=== PATIENT | female | born 1995 | race Caucasian/White ===

== ENCOUNTER → 2017-04-11 12:33 | Observation (INO) ==
[2017-04-11 10:16] LABS: Hematocrit 33.6 % (35.3-44.9); Hemoglobin 11.5 g/dL (11.5-15.4); Mean Corpuscular HGB Conc 34.2 g/dL (31.6-35.5); Mean Corpuscular Hemoglobin 30.7 pg (28.0-33.3); Mean Corpuscular Volume 89.8 fL (83.0-100.0); Mean Platelet Volume 10.7 fL (9.4-12.4); Monocytes # 0.8 K/mcL (0.0-1.3); Platelet Count 182 K/mcL (140-400); Red Blood Count 3.74 M/mcL (3.82-4.97); Red Cell Distribution Width 13.6 % (11.5-14.5)
[2017-04-11 10:26] LABS: Amphetamine Screen,Urine Negative ng/mL (Cutoff=1000); Barbiturate Screen,Urine Negative ng/mL (Cutoff=200); Benzodiazepines Screen,Urine Negative ng/mL (Cutoff=200); Cannabinoid Screen,Urine Negative ng/mL (Cutoff = 50); Cocaine Screen,Urine Negative ng/mL (Cutoff= 300); Creatinine,Urine 78 mg/dL; Opiate Screen,Urine Negative ng/mL (Cutoff=300); Phencyclidine Screen,Urine Negative ng/mL (Cutoff=25); Protein/Creatinine Ratio,Urine 0.17 mg/mg (0-0.20)
[2017-04-11 10:31] LABS: Alanine Aminotransferase 8 Units/L (0-55); Aspartate Amino Transferase 13 Units/L (5-34); BUN/Creatinine Ratio 10 (6-26); Blood Urea Nitrogen 7 mg/dL (7-20); Lactate Dehydrogenase 180 Units/L (159-327); Uric Acid 4.8 mg/dL (2.6-6.0); eGFR For African Americans > 60 (> 60); eGFR For Non-African Americans > 60 (> 60)
[2017-04-11 11:17] LABS: Lymphocytes # 1.1 K/mcL (0.6-4.6); Neutrophils # 6.5 K/mcL (1.6-8.9); Platelet Estimate Normal (Normal)
--- NOTE | 2017-04-11 12:22 | OB/GYN Progress Note ---
Date of Encounter: 04/11/17 Time of Encounter: 12:19 - Assessment and Plan (1) 32 weeks gestation of Current Visit: Yes Status: Acute (2) PIH ( induced hypertension) Current Visit: No Status: Acute BP mild range in L&D. Labs all WNL. POC discussed with Dr. Garcia. Will not give any blood pressure medications at this time. Start on 81mg ASA and schedule biweekly NST's. Discharge home with precautions. Qualifiers: Trimester: third trimester Qualified Code(s): O13.3 - Gestational [ -induced] hypertension without significant proteinuria, third trimester (3) Gestational hypertension w/o significant proteinuria in 3rd trimester Current Visit: No Status: Chronic Subjective - Subjective Interval history: Pt reports 1-2 contractions per hour for the last few days. No c/o headache, vision changes, or RUQ pain at this time. Good FM. Antepartum ROS: movement normal, contractions (occassional), no loss of fluid, no vaginal bleeding Objective - Vital Signs Vital Signs: Intake and Output 04/10/17 04/11/17 04/11/17 23:59 07:59 15:59 Other: Weight 76.5 kg Patient Weight 04/11/17 23:59 Weight 76.5 kg - Exam FHR: category 1 FHR comments: NST reactive Auscultation: bilateral: normal Abdomen: Present: soft, gravid. Absent: tenderness Uterus: Absent: tenderness Comments: normal reflexes, no clonus - Labs Labs: Abnormal lab results RBC 3.74 M/mcL (3.82-4.97) L 04/11/17 10:03 Hct 33.6 % (35.3-44.9) L 04/11/17 10:03
== END | disposition home or self-care (01) ==
LOC: 1NENULAB
PROVIDERS: ADMIT Student in an Organized Health Care Education/Training Program; ATTEND Student in an Organized Health Care Education/Training Program

== ENCOUNTER → 2017-04-18 16:42 | Observation (INO) ==
[2017-04-18 16:05] LABS: Amphetamine Screen,Urine Negative ng/mL (Cutoff=1000); Benzodiazepines Screen,Urine Negative ng/mL (Cutoff=200); Cannabinoid Screen,Urine Negative ng/mL (Cutoff = 50); Cocaine Screen,Urine Negative ng/mL (Cutoff= 300); Opiate Screen,Urine Negative ng/mL (Cutoff=300); Phencyclidine Screen,Urine Negative ng/mL (Cutoff=25)
[2017-04-18 16:07] LABS: Barbiturate Screen,Urine Positive ng/mL (Cutoff=200); Creatinine,Urine 30 mg/dL; Protein/Creatinine Ratio,Urine 0.23 mg/mg (0-0.20)
[2017-04-18 16:12] LABS: Alanine Aminotransferase 10 Units/L (0-55); Aspartate Amino Transferase 12 Units/L (5-34); BUN/Creatinine Ratio 7 (6-26); Lactate Dehydrogenase 176 Units/L (159-327); Uric Acid 3.8 mg/dL (2.6-6.0); eGFR For African Americans > 60 (> 60); eGFR For Non-African Americans > 60 (> 60)
[2017-04-18 16:13] LABS: Blood Urea Nitrogen 5 mg/dL (7-20)
[2017-04-18 16:20] LABS: Basophils # 0.1 K/mcL (0.0-0.2); Eosinophils # 0.1 K/mcL (0.0-0.6); Eosinophils % 0.7 %; Hematocrit 33.5 % (35.3-44.9); Hemoglobin 11.4 g/dL (11.5-15.4); Immature Granulocytes % 4.5 % (0-4); Lymphocytes # 1.8 K/mcL (0.6-4.6); Lymphocytes % 22.3 %; Mean Corpuscular Hemoglobin 30.6 pg (28.0-33.3); Mean Corpuscular Volume 90.1 fL (83.0-100.0); Mean Platelet Volume 10.5 fL (9.4-12.4); Monocytes # 0.8 K/mcL (0.0-1.3); Monocytes % 10.4 %; Neutrophils # 4.9 K/mcL (1.6-8.9); Platelet Count 173 K/mcL (140-400); Red Blood Count 3.72 M/mcL (3.82-4.97); Red Cell Distribution Width 13.5 % (11.5-14.5); Segmented Neutrophils % 61.1 %
--- NOTE | 2017-04-18 16:37 | Discharge Summary ---
Date of Encounter: 04/18/17 Time of Encounter: 16:38 - Discharge Diagnosis (1) 33 weeks gestation of Priority: Primary Status: Acute Comments: Admitted for observation and PIH evaluation (2) Headache in , antepartum Priority: Secondary Status: Acute Comments: Tylenol given for headache pain. (3) NST (non-stress test) reactive on surveillance Priority: Secondary Status: Acute Comments: 120 bpm, moderate variability, +15x15 accels, no decels. Category I tracing. (4) PIH ( induced hypertension) Priority: Secondary Status: Acute Comments: PIH evaluation completed All labs WNL Qualifiers: Trimester: third trimester Qualified Code(s): O13.3 - Gestational [ -induced] hypertension without significant proteinuria, third trimester - Discharge Medications Home Medications: Vit/FA 1 each PO DAILY 05/17/15 [History] Tylenol 650 mg PO PRN PRN 04/15/17 [History] Allergies/Adverse Reactions: 3 Allergy/AdvReac Type Severity Reaction Status Date / Time adhesive tape Allergy Hives Verified 10/31/16 11:24 Carbinoxamine [From [facility]] Allergy Insomnia Verified 10/31/16 11:24 codeine Allergy Hives Verified 10/31/16 11:24 Labetalol Allergy Hives Verified 10/31/16 11:24 Penicillins [PCN] Allergy Swelling Verified 10/31/16 11:24 of Lip/Tongue/Throat pseudoephedrine [From [facility]] Allergy Insomnia Verified 10/31/16 11:24 Data Procedures and tests throughout hospitalization: Laboratory Tests 04/18/17 04/18/17 04/18/17 15:40 15:40 15:40 WBC 8.0 RBC 3.72 L Hgb 11.4 L Hct 33.5 L MCV 90.1 MCH 30.6 MCHC 34.0 RDW 13.5 Plt Count 173 MPV 10.5 Immature Gran % 4.5 H Seg Neutrophils % 61.1 Lymphocytes % 22.3 Monocytes % 10.4 Eosinophils % 0.7 Basophils % 1.0 Neutrophils # 4.9 Lymphocytes # 1.8 Monocytes # 0.8 Eosinophils # 0.1 Basophils # 0.1 BUN Creatinine Est GFR ( Amer) Est GFR (Non-Af Amer) BUN/Creatinine Ratio Uric Acid AST ALT Lactate Dehydrogenase Urine Creatinine 30 Protein/Creatinin Ratio 0.23 H Urine Total Protein < 7 Urine Opiates Screen Negative Ur Barbiturates Screen Positive H Ur Phencyclidine Scrn Negative Ur Amphetamines Screen Negative U Benzodiazepines Scrn Negative Urine Cocaine Screen Negative U Marijuana (THC) Screen Negative 04/18/17 15:40 WBC RBC Hgb Hct MCV MCH MCHC RDW Plt Count MPV Immature Gran % Seg Neutrophils % Lymphocytes % Monocytes % Eosinophils % Basophils % Neutrophils # Lymphocytes # Monocytes # Eosinophils # Basophils # BUN 5 L Creatinine 0.75 Est GFR ( Amer) > 60 Est GFR (Non-Af Amer) > 60 BUN/Creatinine Ratio 7 Uric Acid 3.8 AST 12 ALT 10 Lactate Dehydrogenase 176 Urine Creatinine Protein/Creatinin Ratio Urine Total Protein Urine Opiates Screen Ur Barbiturates Screen Ur Phencyclidine Scrn Ur Amphetamines Screen U Benzodiazepines Scrn Urine Cocaine Screen U Marijuana (THC) Screen Labs on day of discharge: Labs from last 24 hours 04/18/17 04/18/17 04/18/17 15:40 15:40 15:40 WBC 8.0 RBC 3.72 L Hgb 11.4 L Hct 33.5 L MCV 90.1 MCH 30.6 MCHC 34.0 RDW 13.5 Plt Count 173 MPV 10.5 Immature Gran % 4.5 H Seg Neutrophils % 61.1 Lymphocytes % 22.3 Monocytes % 10.4 Eosinophils % 0.7 Basophils % 1.0 Neutrophils # 4.9 Lymphocytes # 1.8 Monocytes # 0.8 Eosinophils # 0.1 Basophils # 0.1 BUN 5 L Creatinine 0.75 Est GFR ( Amer) > 60 Est GFR (Non-Af Amer) > 60 BUN/Creatinine Ratio 7 Uric Acid 3.8 AST 12 ALT 10 Lactate Dehydrogenase 176 Urine Creatinine 30 Protein/Creatinin Ratio 0.23 H Urine Total Protein < 7 Urine Opiates Screen Ur Barbiturates Screen Ur Phencyclidine Scrn Ur Amphetamines Screen U Benzodiazepines Scrn Urine Cocaine Screen U Marijuana (THC) Screen 04/18/17 15:40 WBC RBC Hgb Hct MCV MCH MCHC RDW Plt Count MPV Immature Gran % Seg Neutrophils % Lymphocytes % Monocytes % Eosinophils % Basophils % Neutrophils # Lymphocytes # Monocytes # Eosinophils # Basophils # BUN Creatinine Est GFR ( Amer) Est GFR (Non-Af Amer) BUN/Creatinine Ratio Uric Acid AST ALT Lactate Dehydrogenase Urine Creatinine Protein/Creatinin Ratio Urine Total Protein Urine Opiates Screen Negative Ur Barbiturates Screen Positive H Ur Phencyclidine Scrn Negative Ur Amphetamines Screen Negative U Benzodiazepines Scrn Negative Urine Cocaine Screen Negative U Marijuana (THC) Screen Negative Date of admission: 04/18/17 15:00 Primary care physician: PCP NONE Discharging clinician: Keisha Paris Anticipated date of discharge: 04/18/17 - Patient Status Disposition: Home, Self-Care Condition: Good Functional capacity at discharge: independent ambulation - Discharge Instructions Follow Up With: NONE,PCP [Primary Care Provider] - Niles Zuleta MD [Partnered Physician] - Additional Instructions: Follow up as scheduled on SaturdayApril [address] Zuleta - Diet and Activity Activity: increase activity as tolerated Diet: advance to your usual diet Hospital Course [facility] Hospital course: Pt is a at 33w5d here for PIH evaluation after having an elevated BP with home monitor. Pt reports positive movement, denies bleeding and LOF. Reactive NST noted. PIH labs drawn and all WNL, no significant change in values from 04/11/17 or 04/15/17. Pt information discussed with Dr. Zuleta, informed of lab results and BP during stay. Advised by Dr. Zuleta to send patient home and follow up as scheduled. Pt has an appointment with Dr. Weinberg on 04/22/17. Encouraged patient to take Tylenol 1000 mg q6h as needed for headache. Time Attestation: Total time spent providing and/or coordinating discharge services: Time Spent: Less than 30 minutes Exam - Constitutional General appearance IM: A&O X 3, pleasant, no acute distress, answers questions appropriately - Respiratory Respiratory exam: Present: CTAB - Cardiovascular Cardiovascular exam IM: Present: RRR, +S1, +S2 - GI/Abdominal GI/Abdominal exam IM: normal bowel sounds - Rectal Rectal exam: deferred - Extremities Exam Extremities exam IM: Present: full ROM, normal capillary refill, normal inspection. Absent: pedal edema Additional comments: Reflexes 1+ bilateral lower extremities - Neurological Exam Neurological exam: oriented X3 Additional comments: Reports headache - VTE Reasons for not Prescribing Prophylaxis: Treatment not Indicated - Low risk for VTE
[~2017-04-18 16:42] MED LIST: Acetaminophen 325 MG TABLET PO PRN
== END | disposition home or self-care (01) ==
LOC: 1NENULAB
PROVIDERS: ADMIT Obstetrics & Gynecology; ATTEND Obstetrics & Gynecology

== ENCOUNTER → 2017-04-22 11:44 | Observation (INO) ==
[2017-04-22 10:36] LABS: Hematocrit 32.7 % (35.3-44.9); Hemoglobin 11.1 g/dL (11.5-15.4); Mean Corpuscular HGB Conc 33.9 g/dL (31.6-35.5); Mean Corpuscular Hemoglobin 30.6 pg (28.0-33.3); Mean Corpuscular Volume 90.1 fL (83.0-100.0); Mean Platelet Volume 10.4 fL (9.4-12.4); Platelet Count 147 K/mcL (140-400); Red Blood Count 3.63 M/mcL (3.82-4.97); Red Cell Distribution Width 13.3 % (11.5-14.5)
[2017-04-22 10:46] LABS: Creatinine,Urine 36 mg/dL
[2017-04-22 10:48] LABS: Protein/Creatinine Ratio,Urine < 0.19 mg/mg (0-0.20)
[2017-04-22 11:00] LABS: Basophils # 0.2 K/mcL (0.0-0.2); Lymphocytes # 1.8 K/mcL (0.6-4.6); Monocytes # 0.7 K/mcL (0.0-1.3); Neutrophils # 6.4 K/mcL (1.6-8.9)
[2017-04-22 11:01] LABS: Large Platelets Present (Not Present); Platelet Estimate Normal (Normal)
[2017-04-22 11:12] LABS: Alanine Aminotransferase 8 Units/L (0-55); Aspartate Amino Transferase 10 Units/L (5-34); BUN/Creatinine Ratio 7 (6-26); Lactate Dehydrogenase 165 Units/L (159-327); Uric Acid 3.3 mg/dL (2.6-6.0); eGFR For African Americans > 60 (> 60); eGFR For Non-African Americans > 60 (> 60)
[2017-04-22 11:13] LABS: Blood Urea Nitrogen 5 mg/dL (7-20)
--- NOTE | 2017-04-22 11:25 | Discharge Summary ---
Date of Encounter: 04/22/17 Time of Encounter: 11:25 - Discharge Diagnosis (1) 34 weeks gestation of Priority: Secondary Status: Acute Comments: Admitted for PIH evaluation (2) Headache in , antepartum Priority: Secondary Status: Acute Comments: PIH evaulation today. Encouraged Tylenol use for headache. (3) Gestational hypertension w/o significant proteinuria in 3rd trimester Priority: Primary Status: Chronic Comments: PIH evaluation. All labs WNL. Elevated BP's today Initiated Methyldopa 500 mg po bid after consulting with Dr. Weinberg regarding BP's. - Discharge Medications Prescriptions: Methyldopa [Aldomet] 500 mg PO BID #60 tablet Home Medications: Vit/FA 1 each PO DAILY 05/17/15 [History] Tylenol 650 mg PO PRN PRN 04/15/17 [History] Methyldopa [Aldomet] 500 mg PO BID #60 tablet 04/22/17 [Rx] Allergies/Adverse Reactions: 3 Allergy/AdvReac Type Severity Reaction Status Date / Time adhesive tape Allergy Hives Verified 10/31/16 11:24 Carbinoxamine [From [facility]] Allergy Insomnia Verified 10/31/16 11:24 codeine Allergy Hives Verified 10/31/16 11:24 Labetalol Allergy Hives Verified 10/31/16 11:24 Penicillins [PCN] Allergy Swelling Verified 10/31/16 11:24 of Lip/Tongue/Throat pseudoephedrine [From [facility]] Allergy Insomnia Verified 10/31/16 11:24 Data Procedures and tests throughout hospitalization: Laboratory Tests 04/22/17 04/22/17 04/22/17 10:30 10:30 10:30 WBC 9.2 RBC 3.63 L Hgb 11.1 L Hct 32.7 L MCV 90.1 MCH 30.6 MCHC 33.9 RDW 13.3 Plt Count 147 MPV 10.4 Seg Neutrophils % 68.0 Band Neutrophils % 2.0 Lymphocytes % 20.0 Monocytes % 8.0 Basophils % 2.0 Neutrophils # 6.4 Lymphocytes # 1.8 Monocytes # 0.7 Basophils # 0.2 Platelet Estimate Normal Large Platelets Present A BUN 5 L Creatinine 0.71 Est GFR ( Amer) > 60 Est GFR (Non-Af Amer) > 60 BUN/Creatinine Ratio 7 Uric Acid 3.3 AST 10 ALT 8 Lactate Dehydrogenase 165 Urine Creatinine 36 Protein/Creatinin Ratio < 0.19 Urine Total Protein < 7 Labs on day of discharge: Labs from last 24 hours 04/22/17 04/22/17 04/22/17 10:30 10:30 10:30 WBC 9.2 RBC 3.63 L Hgb 11.1 L Hct 32.7 L MCV 90.1 MCH 30.6 MCHC 33.9 RDW 13.3 Plt Count 147 MPV 10.4 Seg Neutrophils % 68.0 Band Neutrophils % 2.0 Lymphocytes % 20.0 Monocytes % 8.0 Basophils % 2.0 Neutrophils # 6.4 Lymphocytes # 1.8 Monocytes # 0.7 Basophils # 0.2 Platelet Estimate Normal Large Platelets Present A BUN 5 L Creatinine 0.71 Est GFR ( Amer) > 60 Est GFR (Non-Af Amer) > 60 BUN/Creatinine Ratio 7 Uric Acid 3.3 AST 10 ALT 8 Lactate Dehydrogenase 165 Urine Creatinine 36 Protein/Creatinin Ratio < 0.19 Urine Total Protein < 7 Date of admission: 04/22/17 10:10 Primary care physician: PCP NONE Discharging clinician: Keisha Paris Anticipated date of discharge: 04/22/17 - Patient Status Disposition: Home, Self-Care Functional capacity at discharge: independent ambulation - Discharge Instructions Follow Up With: NONE,PCP [Primary Care Provider] - Niles Zuleta MD [Partnered Physician] - - Diet and Activity Activity: increase activity as tolerated Diet: advance to your usual diet Hospital Course [facility] Hospital course: Pt is a 22 year old at 34w2d sent from the office for elevated blood pressure readings. Patient reports + movement, denies bleeding and LOF. Reports headache that occurs off and on, currently no headache. Pt was on Methyldopa with last due to elevated blood pressures. After consulting with Dr. Foster regarding blood pressure readings today, decision made to start patient on Methyldopa 500 mg po bid for the remainder of her . Also instructed to have patient begin taking a baby Aspirin daily until 36 weeks gestation. These recommendations were shared with the patient and she is agreeable to this plan. Will give one dose of Methyldopa before discharge today and send home with prescription. Time Attestation: Total time spent providing and/or coordinating discharge services: Time Spent: Less than 30 minutes Exam - Constitutional General appearance IM: cooperative, A&O X 3, pleasant, no acute distress - Respiratory Respiratory exam: Present: CTAB - Cardiovascular Cardiovascular exam IM: Present: RRR, +S1, +S2 - GI/Abdominal GI/Abdominal exam IM: normal bowel sounds - Rectal Rectal exam: deferred - Extremities Exam Extremities exam IM: Present: full ROM, normal capillary refill, normal inspection - Neurological Exam Neurological exam: oriented X3 - Other Additional findings: FHR 135 bpm, moderate variability, + 15x15 accels no decels. Category I tracing. No contractions noted. - VTE Reasons for not Prescribing Prophylaxis: Treatment not Indicated - Low risk for VTE
== END | disposition home or self-care (01) ==
LOC: 1NENULAB
PROVIDERS: ADMIT Obstetrics & Gynecology; ATTEND Obstetrics & Gynecology

== ENCOUNTER 2017-05-11 06:00 | Inpatient (IN) ==
[2017-05-11] MEDS ORDERED: Famotidine 20 MG/2 ML VIAL IVP PRN (06:30)
[2017-05-11] MEDS ORDERED: Naloxone 0.4 MG/ML INJ IVP PRN (06:30)
[2017-05-11] MEDS ORDERED: miSOPROStol 25 MCG TABLET PO PRN (06:30)
[2017-05-11] MEDS ORDERED: Lidocaine 1% 20 ML MDV INFILT PRN (06:30)
[2017-05-11 07:05] LABS: Hematocrit 31.8 % (35.3-44.9); Hemoglobin 10.9 g/dL (11.5-15.4); Immature Platelets 5.1 % (1.1-6.1); Mean Corpuscular HGB Conc 34.3 g/dL (31.6-35.5); Mean Corpuscular Hemoglobin 30.4 pg (28.0-33.3); Mean Corpuscular Volume 88.8 fL (83.0-100.0); Mean Platelet Volume 10.5 fL (9.4-12.4); Platelet Count 177 K/mcL (140-400); Red Blood Count 3.58 M/mcL (3.82-4.97); Red Cell Distribution Width 13.6 % (11.5-14.5)
[2017-05-11 07:21] LABS: Alanine Aminotransferase 7 Units/L (0-55); Aspartate Amino Transferase 11 Units/L (5-34); BUN/Creatinine Ratio 8 (6-26); Blood Urea Nitrogen 6 mg/dL (7-20); Lactate Dehydrogenase 192 Units/L (159-327); Uric Acid 4.3 mg/dL (2.6-6.0); eGFR For African Americans > 60 (> 60); eGFR For Non-African Americans > 60 (> 60)
[2017-05-11 07:41] LABS: Eosinophils # 0.2 K/mcL (0.0-0.6); Lymphocytes # 1.4 K/mcL (0.6-4.6); Monocytes # 0.7 K/mcL (0.0-1.3); Neutrophils # 6.4 K/mcL (1.6-8.9)
--- NOTE | 2017-05-11 07:41 | OB/GYN History & Physical ---
Date of Encounter: 05/11/17 Time of Encounter: 07:28 Assessment and Plan (1) 37 weeks gestation of Current visit: Yes Status: Acute at 37 0/7 weeks gestation here for IOL secondary to gestational hypertension. Blood Type: O negative, antibody negative GBS:Negative Hep B: non-reactive HIV: Nonreactive RPR: Negative Rubella: Positive Varicella: Positive Plan: -admit to inpatient -[place], EFM -monitor VS -LR at 125/hr -Cytotec 50mcg PO Q4hr prn -UDS, CBC -pitocin as needed -epidural as able Anticipate (2) Elective induction of labor planned Current visit: Yes Status: Acute (3) Gestational hypertension w/o significant proteinuria in 3rd trimester Current visit: Yes Status: Chronic History of Present Illness Chief complaint: IOL HPI: Ms. Chatman is a 22 year old female at 37 0/7 weeks gestation presents to L&D for IOL secondary to gestational hypertension and history of preeclampsia in her first . Her has only been complicated by hypertension and she has been on methyldopa 500mg BID. Her pressures have been running in the 90's diastolic at home recently. She denies any other complications. She notes positive movement, no vaginal fluid or blood leak, no foul odor or itching. She denies SAHU, dizziness, visual changes, fevers, chills, CP, SOB, abdominal pain, nausea, vomiting, diarrhea, constipation or rashes. Blood Type: O negative, antibody negative GBS:Negative Hep B: Nonreactive HIV: Nonreactive RPR: Negative Rubella: Positive Varicella: Positive Past Med Surg Social Fam HX - Past Medical History Attestation: Yes The following information was validated with the patient. Source: patient Medical history: asthma, kidney stones Psychiatric history: no psych history - Past Surgical History Surgical History: other - Social History Smoking Status: Former smoker Smokeless Tobacco Status: No Alcohol use: none Drug use: none Occupational status: unemployed Current living situation: Home - Independent Activity Level: Independent ambulation Recent Out of Country Travel Within the Last 8 Weeks: No Exposure or Possible Exposure to Illness During Travel: No - Family History Mother Adopted: No Family Member Ethnicity: Non- Living Status: Still Living Hx Family Cardiac Disorders: No Hx Family Respiratory Disorders: No Hx Family Cancer: No Hx Family GI Disorders: No Hx Family Endocrine Disorder: Yes (diabetes 2) Hx Family Neuromuscular Disorders: No Hx Family Neurologic Disorders: No Hx Family HEENT Disorders: No Hx Family Autoimmune Disorders: No Obstetrical History - Pregnancies : 4 Para: 2 Term: 2 : 0 Ab's: 1 Livin - History/Complications History/Complications: Hx preeclampsia with first PIH with both previous pregnancies Medications and Allergies Vit/FA 1 each PO DAILY 05/17/15 [History] Methyldopa [Aldomet] 500 mg PO BID #60 tablet 04/22/17 [Rx] 3 Allergy/AdvReac Type Severity Reaction Status Date / Time adhesive tape Allergy Hives Verified 05/11/17 07:45 Carbinoxamine [From [facility]] Allergy Insomnia Verified 05/11/17 07:45 codeine Allergy Hives Verified 05/11/17 07:45 Labetalol Allergy Hives Verified 05/11/17 07:45 Penicillins [PCN] Allergy Swelling Verified 05/11/17 07:45 of Lip/Tongue/Throat pseudoephedrine [From [facility]] Allergy Insomnia Verified 05/11/17 07:45 Review of System OB All systems PM: reviewed and no additional remarkable complaints except as stated Results Result Diagrams: 05/11/17 06:50 05/11/17 06:50 Abnormal lab results RBC 3.58 M/mcL (3.82-4.97) L 05/11/17 06:50 Hgb 10.9 g/dL (11.5-15.4) L 05/11/17 06:50 Hct 31.8 % (35.3-44.9) L 05/11/17 06:50 BUN 6 mg/dL (7-20) L 05/11/17 06:50 All other labs normal. - VTE Reasons for not Prescribing Prophylaxis: Treatment not Indicated - Low risk for VTE - Attending Attestation I examined this patient and my medical decision-making was reviewed with the Resident Physician. I agree with the documented findings, disposition and treatment plan as described except to the extent set forth below.
[2017-05-11 07:42] LABS: Platelet Estimate Normal (Normal)
[2017-05-11] MEDS ORDERED: FLUARIX QUAD 2017-18 36MOS UP/PF 0.5 ML SYRINGE IM ONE (07:48)
[2017-05-11] MEDS: Ringers Solution, Lactated 1,000 ML IVC SCH ×3 (08:00→18:59)
[2017-05-11 08:25] LABS: Amphetamine Screen,Urine Negative ng/mL (Cutoff=1000); Barbiturate Screen,Urine Negative ng/mL (Cutoff=200); Benzodiazepines Screen,Urine Negative ng/mL (Cutoff=200); Cannabinoid Screen,Urine Negative ng/mL (Cutoff = 50); Cocaine Screen,Urine Negative ng/mL (Cutoff= 300); Opiate Screen,Urine Negative ng/mL (Cutoff=300); Phencyclidine Screen,Urine Negative ng/mL (Cutoff=25)
[2017-05-11 08:27] LABS: Protein/Creatinine Ratio,Urine 0.16 mg/mg (0-0.20)
--- NOTE | 2017-05-11 13:49 | OB Labor Progress Note ---
Date of Encounter: 05/11/17 Time of Encounter: 13:46 Labor Progress Note - Subjective Subjective: Pt states uc's are spacing out. - Cervix Cervix: 2-3 80 -2 - Heart Tones Heart Tones: RNST - [place]: UC's q 4 min - Interventions Interventions: AROM clear - Plan Plan: Expect
[2017-05-11] MEDS ORDERED: *HR* Nalbuphine 20 MG/ML AMPUL IVP PRN (16:11)
[2017-05-11] MEDS: Acetaminophen 325 MG TABLET PO ONE ×3 (17:24→22:42)
[2017-05-11] MEDS ORDERED: Epidural Premix (fent/bupiv) 110 ML EP ONE (18:33)
--- NOTE | 2017-05-11 19:03 | Anesthesia Evaluation PreOp ---
Date of Encounter: 05/11/17 Time of Encounter: 17:00 - Past History Planned Operation: gianfranco Cardiac History: Denies any Significant Hx Pulmonary History: Denies Any Significant HX RUBBER [employer] TESTER History: Denies Any Significant HX Other Medical History: Denies Any Significant HX Anesthesia History: No Prior Anesthetic Complications : Yes Test: Positive Alcohol Use: none Drug use: none Medications and Allergies Vit/FA 1 each PO DAILY 05/17/15 [History] Methyldopa [Aldomet] 500 mg PO BID #60 tablet 04/22/17 [Rx] 3 Allergy/AdvReac Type Severity Reaction Status Date / Time adhesive tape Allergy Hives Verified 05/11/17 07:45 Carbinoxamine [From [facility]] Allergy Insomnia Verified 05/11/17 07:45 codeine Allergy Hives Verified 05/11/17 07:45 Labetalol Allergy Hives Verified 05/11/17 07:45 Penicillins [PCN] Allergy Swelling Verified 05/11/17 07:45 of Lip/Tongue/Throat pseudoephedrine [From [facility]] Allergy Insomnia Verified 05/11/17 07:45 - Meds/Allergy Pre-op Review Medications Reviewed: Yes Allergies Reviewed: Yes Beta Blockers on Current Med List: Yes Anesthesia Results - Labs 05/11/17 06:50 05/11/17 06:50 Anesthesia Exam Height: 62 Weight: 78 NPO (# of Hours): mn Pain Scale: 10 - HEENT Pupil (Motor): Pupils equal Mallampati: II Teeth: Normal Oral Opening: Greater than 3 - RUBBER [employer] TESTER LOC: Oriented RUBBER [employer] TESTER Motor: Normal RUE, Normal LUE, Normal RLE, Normal LLE, Normal Face RUBBER [employer] TESTER Sensory: Normal: RUE, LUE, RLE, LLE, Face - Cardiac Rhythm: Regular Murmur: None JVD: No Carotid Bruit: No - Pulmonary Breath Sounds: bilateral Clear Respiratory Effort: Symmetrical Anesthesia Assess/Plan ASA Score: 2 Modified Bess Scale for Level of Consciousness: Cooperative, oriented, and tranquil Anesthetic Plan: Regional Autologous Blood: No Monitoring Plan: Standard Monitors
--- NOTE | 2017-05-11 19:05 | Anesthesia Procedures ---
Date of Encounter: 05/11/17 Time of Encounter: 17:00 Procedures: Anesthesia - Epidural/Spinal Patient ID/Chart reviewed: Yes Patient examined: Yes OB Eval: Gestational age: 37 OB Eval: : 4 OB Eval: Hx Para: 2 OB Eval: Dilated at (cm): 4 OB Eval: Contractions: Non-stressed pattern Consent Obtained: Yes Supplemental Oxygen: None/Room Air Site Prep: Aseptic Technique, Sterile prep and drape, Povidone-Iodine 1% Patient position: upright Local Anesthetic: Lidocaine 1% Amount of Local Anesthetic used: 3 Touhy Needle Gauge: 18 Touhy Needle Depth (cm): 4 Catheter Depth at Skin (cm): 7 Test Dose (1.5% Lido + Epi): Volume given (mls): 3 Test Dose Result: Negative Loading Dose: 0.25% Marcaine (mls): 10 Loading Dose Administered: Thru Catheter Infusion Rate (mls/hr): [address]: Tegaderm, Tape Interspace Used: L4-L5 Loss of Resistance (PRIYANKA): Yes Blood: No CSF: No Paresthesia: No Vitals + FHT's: stable
[2017-05-11] MEDS ORDERED: Epidural Premix (fent/bupiv) 110 ML EP SCH (19:15)
[2017-05-11] MEDS ORDERED: Ondansetron 4 MG/2 ML VIAL IVP ONE (20:37)
[2017-05-11] MEDS ORDERED: Oxytocin 20 units/ LR 1000 mL 20 UNIT/1,000 ML BAG IVC ONE (21:57)
--- NOTE | 2017-05-11 22:17 | OB/GYN Procedure Note ---
Delivery - Delivery Date: 05/11/17 Provider: Russel Clinton Intrapartum events: none Delivery induction: misoprostol Delivery monitor: external FHT, internal uterine Anesthesia: epidural Estimated Blood Loss: 100 - (s) Infant A Infant Delivery Date: 05/11/17 Infant Delivery Time: 21:59 Presentation: vertex Position: CHRIS Route of delivery: Gender: Female Viability: Viable Pounds: 6 Ounces: 7 at 1 minute: 8 at 5 mins: 9 Shoulder Dystocia: not encountered Specimens collected: cord blood Placenta: spontaneous Cord: 3 umbilical vessels - Repair Episiotomy: none Laceration Description: None - Complications Delivery complications: none - Disposition Mom disposition: stable in LDR [place] disposition: stable in LDR - Comments Comments: Pt s/p of liveborn female 6lb7oz with APGARS 8 at 1 min and 9 at 5 min. Spontaneous delivery of normal placenta with 3 VC. EBL 100cc.
[2017-05-12] MEDS ORDERED: Rho Immune Globulin 1,500 UNIT SYRINGE IM PRN (01:30)
[2017-05-12] MEDS ORDERED: Acetaminophen 325 MG TABLET PO PRN (01:30)
[2017-05-12] MEDS ORDERED: Oxytocin 20 units/ LR 1000 mL 20 UNIT/1,000 ML BAG IVC SCH (01:30)
[2017-05-12] MEDS ORDERED: Measles/Mumps/Rubella Vacc 0.5 ML VIAL SQ PRN (01:30)
[2017-05-12] MEDS ORDERED: Ondansetron 4 MG/2 ML VIAL IVP PRN (01:43)
[2017-05-12 06:18] LABS: Basophils # 0.1 K/mcL (0.0-0.2); Basophils % 0.5 %; Eosinophils % 0.2 %; Hematocrit 29.9 % (35.3-44.9); Hemoglobin 10.2 g/dL (11.5-15.4); Immature Granulocytes % 2.9 % (0-4); Lymphocytes # 1.7 K/mcL (0.6-4.6); Lymphocytes % 13.6 %; Mean Corpuscular HGB Conc 34.1 g/dL (31.6-35.5); Mean Corpuscular Hemoglobin 30.4 pg (28.0-33.3); Mean Corpuscular Volume 89.3 fL (83.0-100.0); Mean Platelet Volume 10.6 fL (9.4-12.4); Monocytes # 1.1 K/mcL (0.0-1.3); Neutrophils # 9.2 K/mcL (1.6-8.9); Platelet Count 148 K/mcL (140-400); Red Blood Count 3.35 M/mcL (3.82-4.97); Red Cell Distribution Width 13.3 % (11.5-14.5); Segmented Neutrophils % 73.8 %
[2017-05-12] MEDS: Ibuprofen 600 MG TABLET PO PRN ×2 (08:19→15:22)
[2017-05-12] MEDS: Prenatal Vit/FA 1 EACH TABLET PO SCH (08:19)
--- NOTE | 2017-05-12 08:41 | OB/GYN Progress Note ---
Date of Encounter: 05/12/17 Time of Encounter: 08:39 - Assessment and Plan (1) Status post vaginal delivery Current Visit: Yes Status: Acute patient doing very well, , lochia light, cont current inpt care Subjective - Subjective Patient reports: appetite normal, voiding normally, pain well controlled, ambulating normally [place]: doing well Objective - Latest Vital Signs Latest vital signs: Vital Signs Temp Pulse Resp BP Pulse Ox 05/12/17 07:30 98.6 F 69 16 133/84 05/12/17 03:05 98.2 F 54 16 132/86 96 05/12/17 02:05 98.1 F 61 24 135/87 96 05/12/17 01:05 98.3 F 66 16 141/90 98 Intake and Output 05/11/17 05/12/17 05/12/17 23:59 07:59 15:59 Intake Total 1000 / 1000 Output Total 500 / 500 Balance 1000 / 1000 -500 / -500 Intake: IV Fluids 1000 / 1000 Lactated Ringers 1,000 ML @ 125 1000 / 1000 mls/hr IVC .Q8H ROSLYN Rx#: [id number] Output: Urine 500 / 500 Other: Weight 73.482 kg Patient Weight 05/12/17 23:59 Weight 73.482 kg - Exam Lungs: bilateral: normal Chest: Normal S1, Normal S2 Extremities: Present: normal Abdomen: Present: soft Uterus: Present: normal - Labs Labs: Laboratory Results - last 24 hr 05/11/17 05/12/17 22:50 06:02 WBC 12.4 H RBC 3.35 L Hgb 10.2 L Hct 29.9 L MCV 89.3 MCH 30.4 MCHC 34.1 RDW 13.3 Plt Count 148 MPV 10.6 Immature Gran % 2.9 Seg Neutrophils % 73.8 Lymphocytes % 13.6 Monocytes % 9.0 Eosinophils % 0.2 Basophils % 0.5 Neutrophils # 9.2 H Lymphocytes # 1.7 Monocytes # 1.1 Eosinophils # 0.0 Basophils # 0.1 Baby's Blood Type O RH NEGATIVE Mother's Blood Type O RH NEGATIVE Rhogam Indicated NO
[2017-05-13 08:10] VITALS: BP 144/94
--- NOTE | 2017-05-13 08:26 | Discharge Summary ---
Date of Encounter: 05/13/17 Time of Encounter: 08:23 - Discharge Diagnosis (1) Vaginal delivery Priority: Primary Status: Acute Comments: Continue routine care discharge home today follow up with Dr. Zuleta in 4-6 weeks (2) Gestational hypertension w/o significant proteinuria in 3rd trimester Priority: Secondary Status: Chronic Comments: Continue BP medications follow up in 1 week for nurse visit. - Discharge Medications Prescriptions: Ibuprofen [Motrin] 600 mg PO Q6HR PRN #60 tablet PRN Reason: Moderate Pain Breast Pump [BREAST PUMP] 1 each .ROUTE AD #1 each Home Medications: Methyldopa [Aldomet] 500 mg PO BID #60 tablet 04/22/17 [Rx] Breast Pump [BREAST PUMP] 1 each .ROUTE AD #1 each 05/13/17 [Rx] Ibuprofen [Motrin] 600 mg PO Q6HR PRN #60 tablet 05/13/17 [Rx] Vit/FA 1 each PO DAILY tablet 05/13/17 [Rx] Allergies/Adverse Reactions: 3 Allergy/AdvReac Type Severity Reaction Status Date / Time adhesive tape Allergy Hives Verified 05/11/17 07:45 Carbinoxamine [From Rondec] Allergy Insomnia Verified 05/11/17 07:45 codeine Allergy Hives Verified 05/11/17 07:45 Labetalol Allergy Hives Verified 05/11/17 07:45 Penicillins [PCN] Allergy Swelling Verified 05/11/17 07:45 of Lip/Tongue/Throat pseudoephedrine [From Rondec] Allergy Insomnia Verified 05/11/17 07:45 Data Procedures and tests throughout hospitalization: Laboratory Tests 05/11/17 05/11/17 05/11/17 06:50 06:50 08:02 WBC 8.9 RBC 3.58 L Hgb 10.9 L Hct 31.8 L MCV 88.8 MCH 30.4 MCHC 34.3 RDW 13.6 Plt Count 177 MPV 10.5 Immature Gran % Seg Neutrophils % 70.0 Band Neutrophils % 2.0 Lymphocytes % 16.0 Monocytes % 8.0 Eosinophils % 2.0 Basophils % Myelocytes % 2.0 H Neutrophils # 6.4 Lymphocytes # 1.4 Monocytes # 0.7 Eosinophils # 0.2 Basophils # Platelet Estimate Normal Immature Plt Fraction 5.1 BUN 6 L Creatinine 0.74 Est GFR ( Amer) > 60 Est GFR (Non-Af Amer) > 60 BUN/Creatinine Ratio 8 Uric Acid 4.3 AST 11 ALT 7 Lactate Dehydrogenase 192 Urine Creatinine 73 Protein/Creatinin Ratio 0.16 Urine Total Protein 12 Urine Opiates Screen Ur Barbiturates Screen Ur Phencyclidine Scrn Ur Amphetamines Screen U Benzodiazepines Scrn Urine Cocaine Screen U Marijuana (THC) Screen Baby's Blood Type Mother's Blood Type Rhogam Indicated 05/11/17 05/11/17 05/12/17 08:02 22:50 06:02 WBC 12.4 H RBC 3.35 L Hgb 10.2 L Hct 29.9 L MCV 89.3 MCH 30.4 MCHC 34.1 RDW 13.3 Plt Count 148 MPV 10.6 Immature Gran % 2.9 Seg Neutrophils % 73.8 Band Neutrophils % Lymphocytes % 13.6 Monocytes % 9.0 Eosinophils % 0.2 Basophils % 0.5 Myelocytes % Neutrophils # 9.2 H Lymphocytes # 1.7 Monocytes # 1.1 Eosinophils # 0.0 Basophils # 0.1 Platelet Estimate Immature Plt Fraction BUN Creatinine Est GFR ( Amer) Est GFR (Non-Af Amer) BUN/Creatinine Ratio Uric Acid AST ALT Lactate Dehydrogenase Urine Creatinine Protein/Creatinin Ratio Urine Total Protein Urine Opiates Screen Negative Ur Barbiturates Screen Negative Ur Phencyclidine Scrn Negative Ur Amphetamines Screen Negative U Benzodiazepines Scrn Negative Urine Cocaine Screen Negative U Marijuana (THC) Screen Negative Baby's Blood Type O RH NEGATIVE Mother's Blood Type O RH NEGATIVE Rhogam Indicated NO Date of admission: 05/11/17 06:06 Primary care physician: PCP NONE Consults: 05/12/17 01:30 Consult to Home Appraiser [CONS] Routine Comment: Vaginal delivery, consult needed Discharging clinician: Keisha Paris Anticipated date of discharge: 05/13/17 - Patient Status Disposition: Home, Self-Care Condition: Good Functional capacity at discharge: independent ambulation - Discharge Instructions Follow Up With: NONE,PCP [Primary Care Provider] - Niles Zuleta MD [Partnered Physician] - - Diet and Activity Activity: increase activity as tolerated Diet: regular diet Hospital Course Reason for admission: induction of labor Delivery: Episiotomy: none Other procedures: none complications: none Discharge diagnosis: IUP at term delivered baby: female (breast feeding) Time Attestation: Total time spent providing and/or coordinating discharge services: Time Spent: Less than 30 minutes Exam - Constitutional Vitals: Temp Pulse Resp BP Pulse Ox 98.1 F 69 16 144/94 97 05/13/17 07:40 05/13/17 07:40 05/13/17 07:40 05/13/17 07:40 05/13/17 00:44 General appearance IM: A&O X 3, pleasant, answers questions appropriately - Respiratory Respiratory exam: Present: CTAB - Cardiovascular Cardiovascular exam IM: Present: RRR, +S1, +S2 - GI/Abdominal GI/Abdominal exam IM: normal bowel sounds - Uterine Tone: Firm Uterus Position: 1 Finger Below Umbilicus, Midline - Neurological Exam Neurological exam: alert, oriented X3, reflexes normal
[2017-05-13] MEDS: Prenatal Vit/FA 1 EACH TABLET PO SCH (08:58)
[2017-05-13] MEDS: Ibuprofen 600 MG TABLET PO PRN (09:01)
[2017-05-13] MEDS ORDERED: FLUARIX QUAD 2017-18 36MOS UP/PF 0.5 ML SYRINGE IM ONE (10:02)
== END 2017-05-13 13:01 | disposition home or self-care (01) | DRG 775 ==
LOC: 1NENULAB 06:06 → 1NENUOBS 05-12 01:32
PROVIDERS: ADMIT Obstetrics & Gynecology; ATTEND Obstetrics & Gynecology